=== PATIENT | female | born 1950 | race Caucasian/White ===

== ENCOUNTER 2018-07-21 11:26 | Outpatient (CLI) | payer MEDICARE ==
--- NOTE | 2018-07-21 14:03 | RAD ---
CERVICAL SPINE RADIOGRAPHS 7 VIEWS: Date: 07/21/18 INDICATION: Spondylolisthesis, left arm tingling. FINDINGS: There is moderate right neural foraminal narrowing at C4-5. There is reverse of the normal cervical l ordosis. There is anterior translation of C2 on C3. There is advanced disc degenerative disease at C3 -4 through C6-7. There is no abnormal translational motion of anterolisthesis with flexion and extens ion. IMPRESSION: 1. Stable anterolisthesis of C2 on C3 that does not appear to translate with flexion and extension. 2. Advanced disc degenerative disease of the cervical spine, most pronounced at C3-4 through C6-7. 3. Moderate right C4-5 neural foraminal narrowing due to uncovertebral hypertrophy and facet joint d egenerative change. POS: [facility]
== END 2018-07-21 11:27 | disposition home or self-care (01) ==
LOC: MADRAD 11:26
PROVIDERS: ATTEND Specialist
DX: M43.12 Spondylolisthesis, cervical region (principal); M50.31 Other cervical disc degeneration, high cervical region; M48.02 Spinal stenosis, cervical region; M47.812 Spondylosis without myelopathy or radiculopathy, cervical region
CPT/HCPCS: 72052